=== PATIENT | female | born 1970 | race Caucasian/White ===

== ENCOUNTER 2021-11-16 09:17 | Day surgery (SDC) | payer OTHER, SELFPAY ==
[2021-11-07 13:33] VITALS: BMI 23.2
[2021-11-16] VITALS (7 sets, daily range): BP systolic 114–145; BP diastolic 62–81; PULSE 54–77; RESP 12–20; TEMP 36.6–36.7; O2SAT 99–100; BMI 23.1
--- NOTE | 2021-11-16 09:55 | P.PNAN_ITS ---
Anes - Initial Pre Proc Eval Procedure: Operation Date: 11/16/21 11:30 Proposed Procedures p Bilateral Breast Implant Exchange with Capsulectomy - Neo Campbell MD Date/Time: 11/16/21 09:55 Surgeon: Neo Campbell MD Pre Op Diagnosis: Right Breast Implant Rupture Patient Data Age: 50 Gender: F Height: 1.85 m Weight: 79.4 kg Allergies Allergy/AdvReac Type Severity Reaction Status Date / Time No Known Allergies Allergy Unknown Verified 11/16/21 09:28 Home Medications Medication Instructions Recorded Confirmed Type escitalopram oxalate 20 mg tablet 20 mg PO QAM 06/19/21 11/16/21 History (Lexapro) buprenorphine-naloxone [Suboxone] See Rx Instructions .Route .COMPLEX 09/20/21 11/16/21 History docusate sodium 100 mg capsule 100 mg PO DAILY #14 caps 11/06/21 11/07/21 Rx (Colace) Patient hx anesthesia problems: none Family hx anesthesia problems: none Results Review: All pre-operative results and documents have been reviewed as part of the pre-operative evaluation. [facility] Past Medical History Medical History (Updated 11/16/21 @ 09:56 by Rasheed Rehman MD) Anxiety Chronic back pain Depression Family History Family History Mother Breast cancer Social History Social History Smoking status: Never smoker Second hand tobacco smoke exposure: No Alcohol intake: current Alcohol use details: pt states 1-2 drinks per month Substance use: former Substance use type: painkillers Other substance usage details: pt states being prescribed suboxone for the past 9 years Living arrangements: with family Spiritual care concerns: No Anes - Eval Final PreProcedure Day of Procedure 11/16/21 09:55 Patient weight: normal Heart: regular rate and rhythm Lungs: clear to auscultation Airway: Mallampati scale class II Neurological: alert and oriented Last oral intake: >/= 8 hours ASA classification: II Emergent: no Anesthetic plan: proceed Anesthesia type and monitoring: general LMA and standard monitoring Results Review: All pre-operative results and documents have been reviewed as part of the pre- operative evaluation. Informed Consent: The patient's anesthetic plan and its attendant risks and benefits were discussed with the patient/family/POA. Questions were solicited and answers provided to the satisfaction of the patient/family/POA.
[2021-11-16] MEDS: SCOPOLAMINE 1.5 MG PATCH TRANSDERM (10:00)
[2021-11-16] MEDS: LACTATED RINGERS 1,000 ML 30 ML IV CONT ×2 (10:00→13:03)
[2021-11-16] MEDS: ACETAMINOPHEN 500 MG TABLET 1000 MG PO (10:01)
--- NOTE | 2021-11-16 10:37 | WPDHPUPDATE1 ---
History and Physical Update Update Date/Time: 11/16/21 10:37 History and Physical has been reviewed, including an updated exam of the patient. There are NO changes in the patient's condition. Risks, benefits, and alternatives have been discussed and questions answered. Patient agrees to proceed with procedure.
--- NOTE | 2021-11-16 10:41 | SUR.PREOP ---
FEMALE STAFF MEMBER IN ROOM WHILE DR DIETRICH MARKED PT
--- NOTE | 2021-11-16 10:53 | P.OP_ITS ---
Procedure Note - Detailed Date of Procedure 11/16/21 Pre-op Diagnosis Right Breast Implant Rupture Post-op Diagnosis Same Procedure Performed Bilateral breast implant exchange with bilateral capsulectomy Surgeon Neo Campbell MD Findings Previous implants Bilateral McGhan implants 450cc textured Right - Ruptured Left - intact with thickened capsule Replacement implants Bilateral Janet Mainira SoftTouch 560cc Right REF# [id number] SN [id number] Left REF# [id number] SN [id number] Description of Procedure Preoperatively the risks, benefits, alternatives were discussed in extensive detail. I want her to be very realistic about the risks involved as well as expectations. She understands there will be subtle change. She would like to change to smooth implants subglandular (current plane) and understands her options and the literature on this. She wants to change to an IMF approach from her previous benjamin-areolar. She would like to increase her volume increasing approximatly 20% however we do not have implant information and is results she understands there is the possibility we will not have the correct implants for her. Additionally she understands I can never guarantee complete capsulectomy. We discussed her pain management in the she has discussed this in great length with her pain management physician who recommends a short dose Percocet in addition her current medication rather than increasing her other medications. All questions were answered to her satisfaction today. She would like proceed. Consent obtained. She was taken to the operating room placed supine on the operating room table. Anesthesia provided by anesthesiology and prepped and draped in a standard sterile fashion. Surgical time-out was taken. 1% lidocaine and 0.25% Marcaine with epinephrine was used anesthetize as a field block. Fifteen blade used to make an IMF incision. Dissection was continued to the capsule is identified and elevated superficially to the capsule removing as much of the capsule as I was able. At this point removed the capsule and implant material (right ruptured, left intact) I then copiously irrigated with 3 L of saline solution on TUR tubing. Verified strict hemostasis. Throughout the procedure we did have Tegaderm nipple Steele in place. I changed my gloves. Irrigated copiously with Betadine solution. Using a no- touch technique and a Weston funnel the implant was introduced into the pocket. This was closed using 2-0 Vicryl followed by 3-0 Monocryl and running subcuticular 4-0 Monocryl and tissue glue. She was awoke and taken to the PACU without difficulty. All instrument sponge counts were correct at the end of the case. Estimated Blood Loss 75 Packing No Pathology Yes (Implant capsules bilateral) Complications No immediate complications Condition Stable Disposition PACU
[2021-11-16] MEDS: NACL 0.9% IRRIG POUR BOTTLE 900 ML, GENTAMICIN SULFATE INJ 160 MG, CLINDAMYCIN PHOS INJ... IRRIGATION (11:15)
[2021-11-16] MEDS: BUPIVACAINE HCL 0.25% 50 ML VIAL 30 ML INFILTRATE (11:53)
[2021-11-16] MEDS: LIDO 1%/EPINEPHRINE 1:100,000 20 ML VIAL 30 ML INFILTRATE (11:55)
[2021-11-16] MEDS: ONDANSETRON INJ 4 MG/2 ML VIAL IV PUSH (13:10)
[2021-11-16] MEDS: fentaNYL CITRATE INJ (*CRX) 100 MCG/2 ML VIAL 25 MCG IV PUSH ×2 (13:30→13:38)
--- NOTE | 2021-11-16 14:18 | WPDANESPN ---
Anes - Prog Note Post-Op Date/Time: 11/16/21 14:18 Cardiovascular status: normal Respiratory status: normal Airway patency: baseline Mental status: baseline Post-Op hydration status: normal Vital Signs: Last Vital Signs Temp 36.6 C 11/16/21 13:47 Pulse 61 11/16/21 13:47 Resp 14 11/16/21 13:47 BP 130/67 11/16/21 13:47 Pulse Ox 99 11/16/21 13:47 O2 Del Method Room Air 11/16/21 13:47 O2 Flow Rate 5 11/16/21 13:18 Pain Score (VAS): 3/10 I/O: Intake & Output 11/15/21 11/16/21 11/16/21 23:59 07:59 15:59 Intake Total 350 Balance 350 Patient Feedback: Patient satisfied with anesthetic care.
[2021-11-16] MEDS: oxyCODONE HCL (*CRX) 5 MG TAB IR PO (14:20)
== END 2021-11-16 14:44 | disposition home or self-care (01) ==
PROVIDERS: Visit Provider Surgery Plastic and Reconstructive Surgery
PROC: (CPT 19342; principal; 2021-11-16 11:30)
DX: T85.41XA Breakdown (mechanical) of breast prosthesis and implant, initial encounter (principal)
CPT/HCPCS: 19342

== ENCOUNTER 2021-11-16 15:23 | Outpatient (NON) | payer SELFPAY | END 2021-11-16 15:24 | disposition home or self-care (01) | LOC: ANHLAB 15:24 | PROVIDERS: Visit Provider Surgery Plastic and Reconstructive Surgery | DX: Z98.82 Breast implant status (principal) | CPT/HCPCS: 88304 ==

== ENCOUNTER 2023-12-24 11:01 | Emergency (ER) | payer OTHER, SELFPAY ==
[2023-12-24 11:13] VITALS: BP 149/75; PULSE 90; RESP 16; TEMP 36.6; O2SAT 100
--- NOTE | 2023-12-24 11:20 | ED.GENADULT ---
HPI - General Adult General Chief complaint: Unspecified Stated complaint: medication question Time Seen by Provider: 12/24/23 11:30 History of Present Illness HPI narrative: Patient left without being seen by provider Related Data Home Medications Medication Instructions Recorded Confirmed buprenorphine 2 mg-naloxone 0.5 mg 0.5 film sublingual DAILY 12/24/23 12/24/23 sublingual film clonazepam 1 mg tablet 1 mg PO BID 12/24/23 12/24/23 escitalopram oxalate 20 mg tablet 20 mg PO DAILY 12/24/23 12/24/23 Allergies Allergy/AdvReac Type Severity Reaction Status Date / Time No Known Allergies Allergy Unknown Verified 12/24/23 11:19 [facility] Past Medical History Medical History (Updated 12/24/23 @ 11:35 by Moon Bailey APRN) Anxiety Chronic back pain Depression Family History Family History Mother Breast cancer Social History Social History Smoking status: Never smoker Second hand tobacco smoke exposure: No Alcohol intake: current Alcohol use details: pt states 1-2 drinks per month Substance use: former Substance use type: painkillers Other substance usage details: pt states being prescribed suboxone for the past 9 years Living arrangements: with family Spiritual care concerns: No Course Course Level of Care: Express Care Visit ( left without seeing provide) Vital Signs Vital signs: Vital Signs Temperature 97.8 F 12/24/23 11:13 Pulse Rate 90 12/24/23 11:13 Respiratory Rate 16 12/24/23 11:13 Blood Pressure 149/75 H 12/24/23 11:13 Pulse Oximetry 100 12/24/23 11:13 Oxygen Delivery Room Air 12/24/23 11:13 Temperature 97.8 F 12/24/23 11:13 Pulse Rate 90 12/24/23 11:13 Respiratory Rate 16 12/24/23 11:13 Blood Pressure 149/75 H 12/24/23 11:13 Pulse Oximetry 100 12/24/23 11:13 Oxygen Delivery Room Air 12/24/23 11:13 Medical Decision Making MDM Narrative Medical decision making narrative: patient left without being seen by provider, per nursing staff,was requesting refill on controlled substances because she is unable to reach [place] doctor [place]. Per nursing staff, patient politely declined to be seen after being informed that refills on controlled substances are not prescribed at [facility] Vital Signs Vital Signs: Vital Signs Temperature 97.8 F 12/24/23 11:13 Pulse Rate 90 12/24/23 11:13 Respiratory Rate 16 12/24/23 11:13 Blood Pressure 149/75 H 12/24/23 11:13 Pulse Oximetry 100 12/24/23 11:13 Oxygen Delivery Room Air 12/24/23 11:13 Temperature 97.8 F 12/24/23 11:13 Pulse Rate 90 12/24/23 11:13 Respiratory Rate 16 12/24/23 11:13 Blood Pressure 149/75 H 12/24/23 11:13 Pulse Oximetry 100 12/24/23 11:13 Oxygen Delivery Room Air 12/24/23 11:13 Discharge Plan Discharge Clinical Impression: Prescription refill Patient Disposition: Left Without Being Sn Triaged Prescriptions: No Action buprenorphine-naloxone 2-0.5 mg film 0.5 film sublingual DAILY clonazepam 1 mg tablet 1 mg PO BID escitalopram oxalate 20 mg tablet 20 mg PO DAILY Follow-up/Referrals: UNKNOWN,DOCTOR [Primary Care Provider] - Time of Disposition: 11:33
== END 2023-12-24 11:35 | disposition left against medical advice (07) ==
PROVIDERS: Emergency Provider Nurse Practitioner Family
DX: Z53.21 Procedure and treatment not carried out due to patient leaving prior to being seen by health care provider (principal)
CPT/HCPCS: 99199